=== PATIENT | male | born 2000 | race Two or more races ===

== ENCOUNTER 2020-07-19 13:05 | Emergency (ER) | payer OTHER ==
[~2020-07-19] VITALS: Ht 177.8 cm; Wt 68.5 kg
[2020-07-19] MEDS ORDERED: IBUP-2029 MT (13:30)
[2020-07-19] MEDS ORDERED: IBUPROFEN 800MG TABLET PO ONE (13:30)
[2020-07-19 13:39] VITALS: BP 110/72
== END 2020-07-19 14:00 | disposition home or self-care (01) ==
LOC: ER 13:05
DX: J02.9 Acute pharyngitis, unspecified (principal)
CPT/HCPCS: 99283

== ENCOUNTER 2022-07-21 19:04 | Emergency (ER) | payer OTHER ==
[~2022-07-21] VITALS: Ht 180.3 cm; Wt 75.0 kg
[~2022-07-21 19:04] MED LIST: IBUP-2029 MT
[2022-07-21 19:14] VITALS: BP 104/80
== END 2022-07-21 21:59 | disposition left against medical advice (07) ==
LOC: ER 19:04
DX: Z53.21 Procedure and treatment not carried out due to patient leaving prior to being seen by health care provider (principal)
CPT/HCPCS: 99281